=== PATIENT | male | born 1940 | race Caucasian/White ===

== ENCOUNTER 2018-05-23 17:43 | Emergency (ER) | payer MEDICARE ==
[~2018-05-23] VITALS: Ht 182.9 cm; Wt 104.1 kg
[2018-05-23 17:46] VITALS: BP 165/88; TEMP 98.4
[2018-05-23] MEDS ORDERED: PRINZIDE 12.5 M1 TA1 (18:38)
[2018-05-23] MEDS ORDERED: PRAVACHOL 40MG40 MG PO (18:38)
[2018-05-23] MEDS ORDERED: ASPIRIN 81M81 MG/TA2 PO (18:39)
[2018-05-23] MEDS ORDERED: PHARMASSURE SA160 MG PO (18:39)
[2018-05-23 19:49] VITALS: PULSE 68
== END 2018-05-23 19:49 | disposition home or self-care (01) ==
LOC: COL.ER 17:43
DX: S91.202A Unspecified open wound of left great toe with damage to nail, initial encounter (principal); I10 Essential (primary) hypertension; E78.5 Hyperlipidemia, unspecified; Z79.82 Long term (current) use of aspirin; W22.8XXA Striking against or struck by other objects, initial encounter; Y92.009 Unspecified place in unspecified non-institutional (private) residence as the place of occurrence of the external cause

== ENCOUNTER 2019-02-24 08:12 | Day surgery (SDC) | payer MEDICARE ==
[~2019-02-24] VITALS: Ht 182.9 cm; Wt 106.4 kg
[~2019-02-24 08:12] MED LIST: ASPIRIN 81M81 MG/TA2 PO; PHARMASSURE SA160 MG PO; PRAVACHOL 40MG40 MG PO; PRINZIDE 12.5 M1 TA1
[2019-02-24 08:52] VITALS: BP 147/95; PULSE 64; TEMP 98
[2019-02-24] MEDS ORDERED: ALEVE 220MG220 MG PO (09:00)
[2019-02-24] MEDS ORDERED: PRINZIDE 12.5 M1 TAB PO (09:00)
--- NOTE | 2019-02-24 09:19 | NUR ---
TO RM 5 AT 0830 CALL LIGHT IN REACH AT BEDSIDE.
[2019-02-24 10:05] VITALS: BP 149/91; PULSE 58; TEMP 97.7
--- NOTE | 2019-02-24 10:05 | NUR ---
PT RETURNS TO [facility] BY CART. AMBULATES FROM CART TO CHAIR WITH STANDBY ASSIST. MONITORS APPLIED. VSS AND AT BASELINE. IN ROOM. CALL LIGHT IN REACH. REPORT OBTAINED FROM ENDO NURSE. PT DENIES PAIN OR NAUSEA.
[2019-02-24 10:20] VITALS: BP 152/92; PULSE 62
--- NOTE | 2019-02-24 10:20 | NUR ---
PT REMAINS ALERT. CONTINUES TO DENY PAIN OR NAUSEA. CALL LIGHT IN REACH. IN ROOM.
[2019-02-24 10:35] VITALS: BP 103/78; PULSE 57
--- NOTE | 2019-02-24 10:35 | NUR ---
DC INSTRUCTIONS GIVEN. IV DC'D WITH CATH TIP INTACT. CALL LIGHT IN REACH.
[2019-02-24 10:38] VITALS: BP 132/93; PULSE 59
== END 2019-02-24 10:58 | disposition home or self-care (01) ==
LOC: SDCO 08:12
DX: Z12.11 Encounter for screening for malignant neoplasm of colon (principal); K55.20 Angiodysplasia of colon without hemorrhage; K64.0 First degree hemorrhoids; Z86.010 Personal history of colon polyps; I10 Essential (primary) hypertension; E78.00 Pure hypercholesterolemia, unspecified; Z85.828 Personal history of other malignant neoplasm of skin; Z91.040 Latex allergy status
CPT/HCPCS: OP; J2250; J3010; J7030

== ENCOUNTER → 2022-01-17 | Outpatient (CLI) | payer MEDICARE, OTHER ==
[~2022-01-17] MED LIST changes: +ALEVE 220MG220 MG PO; +PRINZIDE 12.5 M1 TAB PO
== END ==
LOC: ZCOL.LAB 18:54
DX: I10 Essential (primary) hypertension (principal)

== ENCOUNTER → 2022-01-17 | Outpatient (CLI) | payer MEDICARE, OTHER | LOC: ZCOL.LAB 18:38 | DX: I10 Essential (primary) hypertension (principal) ==

== ENCOUNTER 2022-04-21 11:25 | Emergency (ER) | payer MEDICARE, OTHER ==
[~2022-04-21] VITALS: Ht 182.9 cm; Wt 103.2 kg
[2022-04-21 11:26] VITALS: TEMP 98.1
[2022-04-21 11:44] LABS: BASO % 0.4 % (0.0-2.0); EOS # 0.2 K/mm3 (0.0-0.7); GRAN # 4.7 K/mm3 (1.4-6.5); GRAN % 63.8 % (42.2-75.2); HEMATOCRIT 46.9 % (42.0-52.0); HEMOGLOBIN 15.7 g/dl (13.5-18.0); LYMPH # 1.7 K/mm3 (1.2-3.4); LYMPH % 23.2 % (20.0-51.0); MEAN CELL VOLUME 89 fl (80.0-100.0); MEAN CORPUSCULAR HEMOGLOBIN 30 pg (27-31); MEAN CORPUSCULAR HGB CONC 34 g/dl (33.0-37.0); MEAN PLATELET VOLUME 9.2 fl (7.4-10.4); MONO # 0.8 K/mm3 (0.1-0.6); MONO % 10.2 % (1.7-9.3); PLATELET COUNT 199 K/mm3 (130-400); RED BLOOD COUNT 5.28 M/mm3 (4.20-5.60); REDCELL DISTRIBUTION WIDTH-CV 13.5 % (11.5-14.5)
[2022-04-21] MEDS ORDERED: NORVASC 10MG10 MG PO (11:51)
[2022-04-21 12:00] LABS: ALANINE AMINOTRANSFERASE 14 U/L (0-55); ALBUMIN 3.9 gm/dL (3.4-4.8); ALKALINE PHOSPHATASE 45 U/L (40-150); ANION GAP 13 mmol/L (7-16); AST,SGOT 16 U/L (5-34); BILIRUBIN,TOTAL 0.9 mg/dL (0.2-1.2); BLOOD UREA NITROGEN 15 mg/dL (8-26); CALCIUM 9.5 mg/dL (8.4-10.2); CARBON DIOXIDE 24 mmol/L (23-31); CHLORIDE 104 mmol/L (98-107); CREATININE, serum 1.55 mg/dL (0.72-1.25); GLUCOSE 136 mg/dL (70-99); LIPASE 21 U/L (8-78); POTASSIUM 3.1 mmol/L (3.5-4.5); SODIUM 141 mmol/L (136-145); TOTAL PROTEIN 6.7 gm/dL (6.2-8.1)
[2022-04-21 12:22] LABS: TSH w REFLEX 2.983 uIU/mL (0.350-4.940)
[2022-04-21 12:24] LABS: TROPONIN-I < 0.010 ng/mL (0.00-0.033)
[2022-04-21 12:38] LABS: COLLECTION METHOD CLEAN CATCH
[2022-04-21 12:47] LABS: MUCOUS Present (NOT PRESENT); PH 5 (5-8); SQUAMOUS EPITHELIAL 0-2 /hpf (0-10); URINE APPEARANCE Hazy (CLEAR/HAZY); URINE BACTERIA None Seen /hpf (NONE SEEN); URINE BILIRUBIN Negative (NEGATIVE); URINE BLOOD Negative (NEGATIVE); URINE COLOR Yellow (YELLOW); URINE GLUCOSE Negative (NEGATIVE); URINE KETONE Negative (NEGATIVE); URINE LEUKOCYTE ESTERASE Negative (NEGATIVE); URINE NITRATE Negative (NEGATIVE); URINE PROTEIN(semi-quant) Negative (NEGATIVE); URINE UROBILINOGEN Negative (NEGATIVE)
[2022-04-21 13:10] VITALS: BP 131/80; PULSE 72
== END 2022-04-21 13:10 | disposition home or self-care (01) ==
LOC: COL.ER 11:25
PROVIDERS: Emergency Medicine
DX: T67.5XXA Heat exhaustion, unspecified, initial encounter (principal); R79.89 Other specified abnormal findings of blood chemistry; Z91.040 Latex allergy status; Z20.822 Contact with and (suspected) exposure to COVID-19